=== PATIENT | female | born 1985 | race Caucasian/White ===

== ENCOUNTER 2016-04-03 21:41 | Emergency (ER) | payer OTHER ==
[~2016-04-03] VITALS: Ht 152.4 cm; Wt 80.0 kg
[~2016-04-03 21:41] MED LIST: Advil,Nuprin,Motrin PO; Ambien PO; CELEBREX200 MG PO; Cipro PO; Dulcolax PO; Feosol PO; Folvite PO; IMITREX25 MG PO; Imitrex PO; KLONOPIN0.25 MG PO; Lopid PO; METHADONE10 MG PO; NAPROSYN500 MG PO; NICOTINE; NOHOMEMEDS; PAXIL20 MG PO; Paxil PO; REGLAN10 MG PO; Vicodin,Lortab 5/500 PO; ZOFRAN4 MG PO; ZOLOFT25 MG PO
[2016-04-04] MEDS ORDERED: METHADONE1 MG/1 ML PO (00:39)
[2016-04-04] MEDS ORDERED: ESCITALOPRAM OX20 MG PO (00:40)
[2016-04-04] MEDS ORDERED: BUSPIRONE HCL10 MG PO (00:40)
[2016-04-04] MEDS ORDERED: ATARAX,VISTARIL25 MG PO (00:40)
[2016-04-04] MEDS ORDERED: PROPRANOLOL HCL60 MG PO (00:41)
[2016-04-04] MEDS ORDERED: CLONIDINE HCL0.2 MG PO (00:41)
[2016-04-04] MEDS ORDERED: QUETIAPINE FUM200 MG PO (00:42)
[2016-04-04] MEDS ORDERED: NORCO 7.5/321 TABLET PO (01:39)
[2016-04-04] MEDS ORDERED: MOTRIN800 MG PO (01:39)
[2016-04-04] MEDS ORDERED: VALIUM5 MG PO (01:39)
[2016-04-04 01:51] VITALS: BP 110/66
== END 2016-04-04 01:54 | disposition home or self-care (01) ==
LOC: EME 21:41
PROC: 3E0234Z Introduction of Serum, Toxoid and Vaccine into Muscle, Percutaneous Approach (ICD-10-PCS; principal; 2016-04-03)
DX: S00.83XA Contusion of other part of head, initial encounter (principal); S02.2XXA Fracture of nasal bones, initial encounter for closed fracture; S16.1XXA Strain of muscle, fascia and tendon at neck level, initial encounter; S39.012A Strain of muscle, fascia and tendon of lower back, initial encounter; Y04.8XXA Assault by other bodily force, initial encounter; Y07.499 Other family member, perpetrator of maltreatment and neglect; Z23 Encounter for immunization; Z87.442 Personal history of urinary calculi; F17.200 Nicotine dependence, unspecified, uncomplicated
CPT/HCPCS: 70486; 99281; 99284

== ENCOUNTER 2016-04-24 18:22 | Emergency (ER) | payer OTHER ==
[~2016-04-24] VITALS: Ht 152.4 cm; Wt 80.6 kg
[~2016-04-24 18:22] MED LIST changes: +ATARAX,VISTARIL25 MG PO; +BUSPIRONE HCL10 MG PO; +CLONIDINE HCL0.2 MG PO; +ESCITALOPRAM OX20 MG PO; +METHADONE1 MG/1 ML PO; +MOTRIN800 MG PO; +NORCO 7.5/321 TABLET PO; +PROPRANOLOL HCL60 MG PO; +QUETIAPINE FUM200 MG PO; +VALIUM5 MG PO
[2016-04-24 18:52] LABS: ADD MIUA? YES; BILIRUBIN NEGATIVE; BLOOD MODERATE; COLOR AMBER ((YELLOW)); GLUCOSE (STRIP) NEGATIVE; KETONES 5; LEUKOCYTES LARGE; NITRITE NEGATIVE; PROTEIN (STRIP) 100; SPECIFIC GRAVITY 1.017 (1.000-1.030); UROBILINOGEN 0.2 MG/DL (0.2-1.0)
[2016-04-24] MEDS ORDERED: BACTRIM,SEPT1 TABLET PO (19:02)
[2016-04-24] MEDS ORDERED: PYRIDIUM100 MG PO (19:02)
[2016-04-24 19:06] LABS: INTERNAL CONTROL VALID? YES
[2016-04-24 19:07] VITALS: BP 119/41
[2016-04-24] MEDS ORDERED: MOTRIN600 MG PO (19:16)
[2016-04-24 19:17] LABS: BACTERIA RARE /HPF; EPITHELIAL CELLS RARE /HPF; MUCUS TRACE /LPF; RED BLOOD CELLS TNTC /HPF (0-5); UCUL ADDED? YES; WHITE BLOOD CELLS TNTC /HPF (0-5)
== END 2016-04-24 19:17 | disposition home or self-care (01) ==
LOC: EME 18:22
DX: N39.0 Urinary tract infection, site not specified (principal); F17.200 Nicotine dependence, unspecified, uncomplicated
CPT/HCPCS: 81003; 84703; 87077; 87086; 87186; 99281; 99284

== ENCOUNTER 2016-06-25 15:08 | Emergency (ER) | payer OTHER ==
[~2016-06-25] VITALS: Ht 152.4 cm; Wt 81.7 kg
[~2016-06-25 15:08] MED LIST changes: +BACTRIM,SEPT1 TABLET PO; +MOTRIN600 MG PO; +PYRIDIUM100 MG PO
[2016-06-25 15:12] VITALS: BP 109/56
[2016-06-25] MEDS ORDERED: NAPROSYN500 MG PO (16:05)
[2016-06-25] MEDS ORDERED: CLEOCIN300 MG PO (16:05)
[2016-06-25] MEDS ORDERED: ULTRAM50 MG PO (16:05)
== END 2016-06-25 16:59 | disposition home or self-care (01) ==
LOC: EME 15:08
DX: K04.7 Periapical abscess without sinus (principal); L03.211 Cellulitis of face
CPT/HCPCS: 99281; 99284

== ENCOUNTER 2016-06-30 17:05 | Emergency (ER) | payer OTHER ==
[~2016-06-30] VITALS: Ht 152.4 cm; Wt 78.9 kg
[~2016-06-30 17:05] MED LIST changes: +CLEOCIN300 MG PO; +ULTRAM50 MG PO
[2016-06-30 20:37] VITALS: BP 137/87
== END 2016-06-30 20:38 | disposition home or self-care (01) ==
LOC: EME 17:05
DX: G43.909 Migraine, unspecified, not intractable, without status migrainosus (principal); F17.200 Nicotine dependence, unspecified, uncomplicated; F11.20 Opioid dependence, uncomplicated; Z87.820 Personal history of traumatic brain injury
CPT/HCPCS: 99281; 99285; J1200; J1885; J2765; J7030

== ENCOUNTER 2016-11-25 14:05 | Emergency (ER) | payer OTHER ==
[~2016-11-25] VITALS: Ht 152.4 cm; Wt 77.0 kg
[2016-11-25 14:45] LABS: HEMATOCRIT 35.2 % (36.0-46.0); MEAN PLAT.VOLUME 8.6 uM^3 (9.5-12.4); PLATELET COUNT 275 K/uL (156-360); RBC DIS.WIDTH-CV 13.6 % (11.8-14.6); RBC DIS.WIDTH-SD 43.8 % (39-53); WHITE BLOOD COUNT 14.1 K/uL (4.1-10.2)
[2016-11-25 14:53] LABS: CHLORIDE 105 mEq/L (99-109); POTASSIUM 4.2 mEq/L (3.7-5.4); SODIUM 139 mEq/L (136-147)
[2016-11-25 14:55] LABS: GLUCOSE 89 mg/dL (70-99)
[2016-11-25 14:56] LABS: ANION GAP 9 MEQ/L (2-14)
[2016-11-25 14:59] LABS: GFR ESTIMATE (CALCULATED) > 59 mL/min/; UREA NITROGEN (BUN) 13 mg/dL (9-23)
[2016-11-25 16:48] LABS: ADD MIUA? YES; BILIRUBIN NEGATIVE; BLOOD NEGATIVE; COLOR AMBER ((YELLOW)); GLUCOSE (STRIP) NEGATIVE; KETONES NEGATIVE; LEUKOCYTES LARGE; NITRITE NEGATIVE; PROTEIN (STRIP) NEGATIVE
[2016-11-25 17:02] LABS: QUANTITATIVE HCG < 4.0 MIU/ML
[2016-11-25] MEDS ORDERED: TESSALON PERLE100 MG PO (17:29)
[2016-11-25] MEDS ORDERED: VENTOLIN HFA18 GM IH (17:29)
[2016-11-25] MEDS ORDERED: ROBITUSSIN100 MG/5 M PO (17:29)
[2016-11-25] MEDS ORDERED: LEVAQUIN750 MG PO (17:29)
[2016-11-25 17:35] LABS: BACTERIA 3+ /HPF; CASTS NONE SEEN /LPF; CRYSTALS NONE SEEN; EPITHELIAL CELLS 1+ /HPF; MUCUS TRACE /LPF; RED BLOOD CELLS RARE /HPF (0-5); WHITE BLOOD CELLS TNTC /HPF (0-5)
[2016-11-25 17:59] VITALS: BP 105/74
== END 2016-11-25 18:01 | disposition home or self-care (01) ==
LOC: EME 14:05
PROVIDERS: Nurse Practitioner Family
DX: J18.9 Pneumonia, unspecified organism (principal); N39.0 Urinary tract infection, site not specified; F17.200 Nicotine dependence, unspecified, uncomplicated; K08.89 Other specified disorders of teeth and supporting structures; H92.02 Otalgia, left ear; Z87.442 Personal history of urinary calculi
CPT/HCPCS: 71020; 80048; 81003; 84702; 85027; 94640; 99281; 99284

== ENCOUNTER 2017-05-17 12:09 | Emergency (ER) | payer OTHER ==
[~2017-05-17] VITALS: Ht 152.4 cm; Wt 79.0 kg
[~2017-05-17 12:09] MED LIST changes: +LEVAQUIN750 MG PO; +ROBITUSSIN100 MG/5 M PO; +TESSALON PERLE100 MG PO; +VENTOLIN HFA18 GM IH
[2017-05-17 12:13] VITALS: BP 139/96
[2017-05-17] MEDS ORDERED: ZOFRAN ODT4 MG PO (14:10)
[2017-05-17] MEDS ORDERED: PEN-VEE K,VEET500 MG PO (14:10)
[2017-05-17] MEDS ORDERED: MOTRIN800 MG PO (14:10)
== END 2017-05-17 14:38 | disposition home or self-care (01) ==
LOC: EME 12:09
DX: K02.9 Dental caries, unspecified (principal)
CPT/HCPCS: 99281; 99284

== ENCOUNTER 2017-05-22 14:41 | Emergency (ER) | payer OTHER ==
[~2017-05-22] VITALS: Ht 152.4 cm; Wt 81.5 kg
[~2017-05-22 14:41] MED LIST changes: +PEN-VEE K,VEET500 MG PO; +ZOFRAN ODT4 MG PO
[2017-05-22 15:56] VITALS: BP 122/68
== END 2017-05-22 15:56 | disposition home or self-care (01) ==
LOC: EME 14:41
DX: J06.9 Acute upper respiratory infection, unspecified (principal); F32.9 Major depressive disorder, single episode, unspecified; F17.200 Nicotine dependence, unspecified, uncomplicated; Z87.442 Personal history of urinary calculi
CPT/HCPCS: 99281; 99284; J1100

== ENCOUNTER 2017-07-09 15:17 | Emergency (ER) | payer OTHER ==
[~2017-07-09] VITALS: Ht 152.4 cm; Wt 83.1 kg
[2017-07-09 16:39] LABS: APPEARANCE SL.HAZY ((CLEAR)); BILIRUBIN NEGATIVE; BLOOD NEGATIVE; COLOR YELLOW ((YELLOW)); GLUCOSE (STRIP) NEGATIVE; KETONES NEGATIVE; LEUKOCYTES LARGE; NITRITE NEGATIVE; PROTEIN (STRIP) NEGATIVE; SPECIFIC GRAVITY 1.013 (1.000-1.030); UROBILINOGEN 0.2 MG/DL (0.2-1.0)
[2017-07-09] MEDS ORDERED: BACTRIM,SEPT1 TABLET PO (16:42)
[2017-07-09] MEDS ORDERED: PYRIDIUM100 MG PO (16:42)
[2017-07-09] MEDS ORDERED: MOTRIN800 MG PO (16:42)
[2017-07-09] MEDS ORDERED: AMOXICILLIN500 M1 PO (16:42)
[2017-07-09 16:57] LABS: BACTERIA 2+ /HPF; EPITHELIAL CELLS 1+ /HPF; MUCUS NONE SEEN /LPF; RED BLOOD CELLS 0-5 /HPF (0-5); WHITE BLOOD CELLS TNTC /HPF (0-5)
[2017-07-09 17:12] VITALS: BP 118/79
== END 2017-07-09 17:13 | disposition home or self-care (01) ==
LOC: EME 15:17
PROVIDERS: Nurse Practitioner Family
DX: H66.91 Otitis media, unspecified, right ear (principal); N39.0 Urinary tract infection, site not specified; Z87.440 Personal history of urinary (tract) infections; F17.200 Nicotine dependence, unspecified, uncomplicated
CPT/HCPCS: 81003; 99281; 99284